=== PATIENT | male | born 1980 | race Two or more races ===

== ENCOUNTER → 2019-10-05 | Outpatient (CLI) | payer BC ==
--- NOTE | 2019-10-05 07:50 | MR ---
EXAMINATION TYPE: MR knee LT wo con DATE OF EXAM: 10/05/2019 COMPARISON: NONE HISTORY: Lt knee pain per order. Pain behind knee for 3 months per patient. TECHNIQUE: Multiplanar, multisequence images of the knee is performed without IV contrast. FINDINGS: MEDIAL MENISCUS: Anterior and posterior horns are intact without tear. LATERAL MENISCUS: Anterior and posterior horns are intact without tear. CRUCIATE LIGAMENTS: The anterior and posterior cruciate ligaments are intact and unremarkable. COLLATERAL LIGAMENTS: The medial collateral ligament and lateral collateral ligament complex are inta ct and unremarkable. EXTENSOR MECHANISM: Visualized quadriceps and patellar tendons are intact. EFFUSION: There is moderate to large size suprapatellar joint effusion. POPLITEAL CYST: Moderate size popliteal/bran cyst measuring 4.5 cm long axis sagittal image 24 with fluid extending inferiorly. TRICOMPARTMENT SPACES: Mild tricompartment joint space narrowing without significant spurring. CARTILAGE: Tricompartment articular cartilage is maintained. No significant chondromalacia patella. BONE MARROW SIGNAL: No focal abnormal marrow signal is appreciated. OTHER: No additional significant abnormality is appreciated. IMPRESSION: 1. No meniscal or ligamentous tear is seen. 2. Moderate to large-sized patellar joint effusion. 3. Moderate-sized leaking popliteal cyst. 4. Mild tricompartment joint space loss.
== END | disposition home or self-care (01) ==
LOC: RADMRIMAIN 06:32
PROVIDERS: ATTEND Internal Medicine
DX: M25.462 Effusion, left knee (principal); M71.22 Synovial cyst of popliteal space [Baker], left knee; M25.862 Other specified joint disorders, left knee

== ENCOUNTER → 2021-02-22 | Outpatient (CLI) | payer OTHER | END | disposition home or self-care (01) | LOC: LABWHC1 15:26 | PROVIDERS: ATTEND Internal Medicine | DX: R50.9 Fever, unspecified (principal); R05 Cough | CPT/HCPCS: U0003; C9803 ==

== ENCOUNTER → 2021-11-28 | Outpatient (CLI) | payer OTHER ==
--- NOTE | 2021-11-28 11:16 | MR ---
EXAMINATION TYPE: MR shoulder LT wo con DATE OF EXAM: 11/28/2021 COMPARISON: None HISTORY: Left shoulder pain for 2-3 months, limited movement, PT did not help. TECHNIQUE: Multiplanar, multisequence imaging of the left shoulder is performed without contrast. FINDINGS: Bicipital tendon is situated within the bicipital groove with mild increased fluid surround ing the tendon compatible with mild bicipital bony labrum are grossly intact by radiographic techniqu e. The biceps anchor and intracapsular portion of the biceps tendon is normal. There is hypertrophic arthropathy of the AC joint with spurring and cystic changes. Small amount of f luid in the subacromial bursa with mass effect and impingement supraspinatus tendon and muscle. There is no evidence of through thickness tear or retraction. Along the anterior fibers the supraspin atus tendon there is bursal scuffing and increased intrasubstance signal tendinosis is favored over p artial bursal surface tear. Infraspinatus and subscapularis tendon is intact. No sizable joint effusion. Glenohumeral ligaments intact. Suprascapular notch is normal. No additiona l marrow edema or contusion. IMPRESSION: 1. Severe arthropathy of the AC joint with impingement supraspinatus muscle and tendon resulting in t endinosis of the distal supraspinatus tendon. Partial intrasubstance tear suspected. No through thick ness tear or retraction. 2. Bicipital tendinosis.
== END | disposition home or self-care (01) ==
LOC: RADMRIMAIN 10:25
PROVIDERS: ATTEND Family Medicine
DX: M19.012 Primary osteoarthritis, left shoulder (principal)

== ENCOUNTER → 2022-09-05 | Outpatient (CLI) | payer OTHER ==
--- NOTE | 2022-09-05 22:39 | MR ---
EXAMINATION TYPE: MR knee LT wo con DATE OF EXAM: 09/05/2022 COMPARISON: Prior MRI left knee October 05, 2019 HISTORY: Left knee posterior pain hand swelling. TECHNIQUE: Multiplanar, multisequence imaging of the left knee is performed without IV contrast. FINDINGS: MEDIAL MENISCUS: Anterior and posterior horns remain intact without tear. LATERAL MENISCUS: Anterior and posterior horns remain intact without tear. CRUCIATE LIGAMENTS: The anterior and posterior cruciate ligaments remain intact and unremarkable. COLLATERAL LIGAMENTS: The medial collateral ligament and lateral collateral ligament complex are inta ct and unremarkable. EXTENSOR MECHANISM: Visualized quadriceps and patellar tendons are intact. EFFUSION: Small to moderate size suprapatellar joint effusion diminished in size from prior. POPLITEAL CYST: Fairly stable moderate size popliteal/bran cyst measuring near 5.0 cm on the axis a s image 25 redemonstrated with some ill-defined fluid inferior to this again seen. TRICOMPARTMENT SPACES: Mild tricompartment joint space loss redemonstrated. No significant new spurri ng. CARTILAGE: Tricompartment articular cartilage is preserved. BONE MARROW SIGNAL: No focal abnormal marrow signal is appreciated. OTHER: No additional significant abnormality is appreciated. IMPRESSION: No meniscal or ligamentous tear is seen. Moderate-sized leaking popliteal cyst redemonstr ated and stable. Small to moderate sized suprapatellar joint effusion diminished in size from prior. Stable mild tricompartment degenerative changes are noted.
== END | disposition home or self-care (01) ==
LOC: RADMRIMAIN 19:48
PROVIDERS: ATTEND Orthopaedic Surgery
DX: M25.462 Effusion, left knee (principal)

== ENCOUNTER 2023-03-24 19:04 | Emergency (ER) | payer OTHER ==
[2023-03-24] MEDS ORDERED: DICYCLOMINE 10 MG/ML 2 ML AMP IM STA (19:15)
[2023-03-24] MEDS ORDERED: FAMOTIDINE 20 MG/2 ML VIAL IV STA (19:15)
[2023-03-24] MEDS ORDERED: SODIUM CHLORIDE 0.9% 2,000 ML IV STA (19:15)
[2023-03-24] MEDS ORDERED: ONDANSETRON 4 MG/2 ML VIAL IVP STA ×2 (19:15→20:51)
--- NOTE | 2023-03-24 19:17 | ED ---
General Adult HPI - General Chief complaint: Nausea/Vomiting/Diarrhea Stated complaint: vomiting Time Seen by Provider: 03/24/23 19:11 Source: patient, RN notes reviewed Mode of arrival: ambulatory Limitations: no limitations - History of Present Illness Initial comments: Patient is a pleasant 43-year-old male presenting to the emergency department with concerns for vomiting. Onset of symptoms was 2 days ago. Patient vomited 4 times today, more than that yesterday. Patient is also having diarrhea, similar amount. No abdominal pain. No constipation. No fever. Patient did have similar symptoms a couple weeks ago that resolved. Otherwise this is not a chronic problem for him. - Related Data Home Medications Medication Instructions Recorded Confirmed Albuterol Inhaler [Ventolin Hfa 1 - 2 puff INHALATION RT-QID PRN 03/24/23 03/24/23 Inhaler] Fenofibrate [Lofibra] 160 mg PO DAILY 03/24/23 03/24/23 HYDROcodone/APAP 10-325MG [[place] 1 tab PO DAILY PRN 03/24/23 03/24/23 10-325] Indomethacin [Indocin] 50 mg PO TID PRN 03/24/23 03/24/23 Losartan Potassium 50 mg PO DAILY 03/24/23 03/24/23 Omeprazole 20 mg PO DAILY PRN 03/24/23 03/24/23 allopurinoL 300 mg PO BID 03/24/23 03/24/23 traMADol HCL 50 mg PO TID PRN 03/24/23 03/24/23 Previous Rx's Medication Instructions Recorded Ondansetron Odt [Zofran Odt] 4 mg PO Q8HR PRN #12 tab 03/13/23 Allergies Allergy/AdvReac Type Severity Reaction Status Date / Time erythromycin base Allergy Unknown Verified 03/24/23 20:52 Penicillins Allergy Unknown Verified 03/24/23 20:52 Review of Systems ROS Statement: Those systems with pertinent positive or pertinent negative responses have been documented in the HPI. ROS Other: All systems not noted in ROS Statement are negative. Constitutional: Denies: fever Eyes: Denies: eye pain ENT: Denies: ear pain Respiratory: Denies: cough Cardiovascular: Denies: chest pain Endocrine: Denies: fatigue Gastrointestinal: Reports: as per HPI, nausea, vomiting, diarrhea. Denies: abdominal pain Genitourinary: Denies: dysuria Musculoskeletal: Denies: back pain Skin: Denies: rash Neurological: Denies: weakness Past Medical History Past Medical History: Hypertension History of Any Multi-Drug Resistant Organisms: None Reported Past Surgical History: Appendectomy, Tonsillectomy Past Psychological History: Depression Smoking Status: Never smoker Past Alcohol Use History: None Reported Past Drug Use History: None Reported General Exam Limitations: no limitations General appearance: alert, in no apparent distress Head exam: Present: normocephalic Eye exam: Present: normal appearance ENT exam: Present: normal oropharynx Neck exam: Present: normal inspection Respiratory exam: Present: normal lung sounds bilaterally Cardiovascular Exam: Present: tachycardia, normal heart sounds GI/Abdominal exam: Present: soft, normal bowel sounds. Absent: distended, t enderness, guarding, rebound, rigid, pulsatile mass Extremities exam: Present: normal inspection Neurological exam: Present: alert Psychiatric exam: Present: normal affect, normal mood Skin exam: Present: normal color Course Vital Signs 03/24/23 03/24/23 03/24/23 19:06 19:45 20:00 Temperature 97.7 F Pulse Rate 150 H 124 H Respiratory 24 20 Rate Blood Pressure 128/90 118/98 118/98 O2 Sat by Pulse 94 L 94 L Oximetry 03/24/23 20:40 Temperature Pulse Rate Respiratory Rate Blood Pressure 121/84 O2 Sat by Pulse 95 Oximetry EKG Findings - EKG Results: EKG: interpreted by ERMD (Rate 107. Left axis. Inferior Q waves. No acute ST change.), sinus rhythm, normal ST/T EKG shows: tachycardia Medical Decision Making - Medical Decision Making Was pt. sent in by a medical professional or institution (, PA, SMALL APPLIANCE ASSEMBLY SUPERVISOR, urgent care, hospital, or intermediate...) When possible be specific @ -No Did you speak to anyone other than the patient for history (EMS, parent, family, police, friend...)? What history was obtained from this source @ -No Did you review nursing and triage notes (agree or disagree)? Why? @ -I reviewed and agree with nursing and triage notes Were old charts reviewed (outside hosp., previous admission, EMS record, old EKG, old radiological studies, urgent care reports/EKG's, intermediate records)? Report findings @ -No old charts were reviewed Differential Diagnosis (chest pain, altered mental status, abdominal pain women, abdominal pain men, vaginal bleeding, weakness, fever, dyspnea, syncope, headache, dizziness, GI bleed, back pain, seizure, CVA, palpatations, mental health)? @ -Differential Abdominal Pain Men: Appendicitis, cholecystitis, diverticulosis, ischemic bowel, pancreatitis, hepatitis, UTI, gastroenteritis, AAA, incarcerated hernia, bowel obstruction, constipation, inflammatory bowel, hepatitis, peptic ulcer disease, splenic infarction, perforated viscus, testicular torsion, this is not meant to be an all-inclusive list EKG interpreted by me (3pts min.). @ -As above X-rays interpreted by me (1pt min.). @ -None done CT interpreted by me (1pt min.). @ -None done U/S interpreted by me (1pt. min.). @ -None done What testing was considered but not performed or refused? (CT, X-rays, U/S, labs)? Why? @ -None What meds were considered but not given or refused? Why? @ -None Did you discuss the management of the patient with other professionals (professionals i.e. , PA, SMALL APPLIANCE ASSEMBLY SUPERVISOR, lab, RT, psych nurse, dialysis social worker, electrical tech/project manager, teacher, sports development officer, supportive employment case manager)? Give summary @ -No Was smoking cessation discussed for >3mins.? @ -No Was critical care preformed (if so, how long)? @ -No Were there social determinants of health that impacted care today? How? ( Homelessness, low income, unemployed, alcoholism, drug addiction, transportation, low edu. Level, literacy, decrease access to med. care, shelter, rehab)? @ -No Was there de-escalation of care discussed even if they declined (Discuss DNR or withdrawal of care, Hospice)? DNR status @ -No What co-morbidities impacted this encounter? (DM, HTN, Smoking, COPD, CAD, Cancer, CVA, ARF, Chemo, Hep., AIDS, mental health diagnosis, sleep apnea, morbid obesity)? @ -None Was patient admitted / discharged? Hospital course, mention meds given and route, prescriptions, significant lab abnormalities, going to OR and other pertinent info. @ -Patient reevaluated and feeling better. Patient given fluids and medications. Patient updated on results and need for follow-up Undiagnosed new problem with uncertain prognosis? @ -No Drug Therapy requiring intensive monitoring for toxicity (Heparin, Nitro, Insulin, Cardizem)? @ -No Were any procedures done? @ -No Diagnosis/symptom? @ -Vomiting Acute, or Chronic, or Acute on Chronic? @ -Acute Uncomplicated (without systemic symptoms) or Complicated (systemic symptoms)? @ -default Side effects of treatment? @ -No Exacerbation, Progression, or Severe Exacerbation? @ -No Poses a threat to life or bodily function? How? (Chest pain, [place], [place], pneumonia, PE, COPD, DKA, ARF, appy, cholecystitis, CVA, Diverticulitis, Homicidal, Suicidal, threat to staff... and all critical care pts) @ -No - Lab Data Result diagrams: 03/24/23 19:25 03/24/23 19:25 Lab Results 03/24/23 03/24/23 Range/Units 19:25 19:25 WBC 14.5 H (3.8-10.6) k/uL RBC 5.48 (4.30-5.90) m/uL Hgb 15.6 (13.0-17.5) gm/dL Hct 47.3 (39.0-53.0) % MCV 86.3 (80.0-100.0) fL MCH 28.5 (25.0-35.0) pg MCHC 33.0 (31.0-37.0) g/dL RDW 13.9 (11.5-15.5) % Plt Count 330 (150-450) k/uL MPV 8.6 Neutrophils % 75 % Lymphocytes % 15 % Monocytes % 5 % Eosinophils % 3 % Basophils % 0 % Neutrophils # 10.9 H (1.3-7.7) k/uL Lymphocytes # 2.1 (1.0-4.8) k/uL Monocytes # 0.8 (0-1.0) k/uL Eosinophils # 0.5 (0-0.7) k/uL Basophils # 0.0 (0-0.2) k/uL Sodium 139 (137-145) mmol/L Potassium 4.2 (3.5-5.1) mmol/L Chloride 104 (98-107) mmol/L Carbon Dioxide 22 (22-30) mmol/L Anion Gap 13 mmol/L BUN 17 (9-20) mg/dL Creatinine 1.31 H (0.66-1.25) mg/dL Est GFR (CKD-EPI)AfAm 78 (>60 ml/min/1.73 sqM) Est GFR (CKD-EPI)NonAf 67 (>60 ml/min/1.73 sqM) Glucose 114 H (74-99) mg/dL Calcium 9.0 (8.4-10.2) mg/dL Total Bilirubin 0.5 (0.2-1.3) mg/dL Total Protein 6.8 (6.3-8.2) g/dL Albumin 4.2 (3.5-5.0) g/dL Amylase 34 (30-110) U/L Disposition Clinical Impression: Vomiting Disposition: HOME SELF-CARE Condition: Stable Instructions (If sedation given, give patient instructions): Acute Nausea and Vomiting (ED) Additional Instructions: Please do follow-up with your primary care physician in the next couple days for recheck. Return for uncontrolled vomiting, pain, fever, worsening or changing symptoms or other concerns. Is patient prescribed a controlled substance at d/c from ED?: No Referrals: Smith Santoyo MD [Primary Care Provider] - 1-2 days Time of Disposition: 21:12
[2023-03-24 19:46] VITALS: RESP 20
[2023-03-24 19:52] LABS: Basophils % (A) 0 %; Eosinophils # (A) 0.5 k/uL (0-0.7); Eosinophils % (A) 3 %; HCT 47.3 % (39.0-53.0); HGB 15.6 gm/dL (13.0-17.5); Lymphocytes # (A) 2.1 k/uL (1.0-4.8); Lymphocytes % (A) 15 %; MCH 28.5 pg (25.0-35.0); MCV 86.3 fL (80.0-100.0); Mean Platelet Volume 8.6; Monocytes # (A) 0.8 k/uL (0-1.0); Monocytes % (A) 5 %; Neutrophils # (A) 10.9 k/uL (1.3-7.7); Neutrophils % (A) 75 %; Platelet Count 330 k/uL (150-450); RBC 5.48 m/uL (4.30-5.90); RDW 13.9 % (11.5-15.5); WBC 14.5 k/uL (3.8-10.6)
[2023-03-24 20:56] LABS: Albumin 4.2 g/dL (3.5-5.0); Potassium 4.2 mmol/L (3.5-5.1); Total Bilirubin 0.5 mg/dL (0.2-1.3); Total Protein 6.8 g/dL (6.3-8.2)
[2023-03-24] MEDS ORDERED: ONDANSETRON 4 MG ODT STARTER PACK 2 TAB BTL PO STA (21:36)
[2023-03-24 22:04] VITALS: BP 128/90; PULSE 102; TEMP 98.8
== END 2023-03-24 22:03 | disposition home or self-care (01) ==
LOC: EC 19:04
DX: R11.10 Vomiting, unspecified (principal); I10 Essential (primary) hypertension; F32.A Depression, unspecified; Z79.899 Other long term (current) drug therapy; Z88.0 Allergy status to penicillin; Z88.1 Allergy status to other antibiotic agents
CPT/HCPCS: 36415; 93005; 80053; 82150; 83690; 85025; 99284; 96372; 96374; 96375; 96376; 96361; J0500; J2405; S0119

== ENCOUNTER → 2023-05-06 | Outpatient (CLI) | payer OTHER ==
--- NOTE | 2023-05-06 20:07 | MR ---
EXAMINATION TYPE: MR knee RT wo con DATE OF EXAM: 05/06/2023 COMPARISON: None HISTORY: Rt knee posterior pain with locking and swelling x2 months TECHNIQUE: Multiplanar, multisequence imaging of the right knee is performed without IV contrast. FINDINGS: MEDIAL MENISCUS: Anterior and posterior horns are intact without tear. LATERAL MENISCUS: Anterior and posterior horns are intact without tear. CRUCIATE LIGAMENTS: The anterior and posterior cruciate ligaments are intact and unremarkable. COLLATERAL LIGAMENTS: The medial collateral ligament and lateral collateral ligament complex are inta ct and unremarkable. EXTENSOR MECHANISM: Increased signal within the substance of the ACL may reflect chronic partial tear . No evidence for full-thickness tear. PCL is intact. EFFUSION: Small to moderate joint effusion noted. POPLITEAL CYST: Large popliteal fossa cyst measuring 5.5 x 2.3 cm. TRICOMPARTMENT SPACES: Mild narrowing medial tibiofemoral joint space. CARTILAGE: Intact BONE MARROW SIGNAL: No focal abnormal marrow signal is appreciated. OTHER: No additional significant abnormality is appreciated. IMPRESSION: 1. Large Jensen's cyst. 2. Joint effusion as noted. 3. Increased signal within the substance of the ACL may reflect chronic partial tear. No evidence fo r full-thickness tear.
== END | disposition home or self-care (01) ==
LOC: RADMRIMAIN 17:43
PROVIDERS: ATTEND Orthopaedic Surgery
DX: M25.461 Effusion, right knee (principal); M71.21 Synovial cyst of popliteal space [Baker], right knee